=== PATIENT | male | born 1950 | race Caucasian/White ===

== ENCOUNTER 2022-06-09 06:06 | Day surgery (SDC) | payer MEDICARE ==
[2022-06-07 12:21] VITALS: BMI 30.5
[~2022-06-09 06:06] MED LIST: LIDOCAINE 1% (10MG/ML) FOR IV START INTRADERMA PRN
[2022-06-09] MEDS: LACTATED RINGERS 1,000 ML IV SCH ×2 (06:43→07:23)
[2022-06-09 06:49] VITALS: RESP 20; TEMP 97
[2022-06-09] MEDS ORDERED: ONDANSETRON 4 MG/2 ML VIAL IVP PRN (07:00)
[2022-06-09] MEDS ORDERED: PROPOFOL 10 MG/ML 20 ML VIAL IV ONE (07:24)
[2022-06-09] MEDS ORDERED: LIDOCAINE 2% INJ 20 MG/ML (2 ML VIAL) ONE (07:24)
--- NOTE | 2022-06-09 08:00 | P.PCN ---
Date of Procedure: 06/09/22 Procedure(s) Performed: Brief history: Patient is a pleasant 71-year-old white male scheduled for an elective upper endoscopy as well as colonoscopy as a part of evaluation of GERD/Forte's esophagus and history of colon polyps. Last colonoscopy was 2 years ago. Procedure performed: Esophagogastroduodenoscopy with biopsy Colonoscopy with snare polypectomy, argon plasma coagulation and Endo Clip placement Preoperative diagnosis: GERD/Forte's esophagus History of colon polyps Anesthesia: MAC Procedure: After informed consent was obtained from the patient was brought into the endoscopy unit and IV sedation was administered by anesthesia under continuous monitoring. Initially upper endoscopy was done. The Olympus GF 160 video endoscope was inserted inserted into the mouth and esophagus intubated without any difficulty and was gradually advanced into the stomach and duodenum and car efully examined. The bulb and second part of the duodenum appeared normal. The scope was then withdrawn into the stomach adequately insufflated with air and upon careful examination the antrum and body, cardia and fundus appeared normal. The scope was then withdrawn into the esophagus. The GE junction was located at 30 cm to the incisors. Moderate to large size hiatal hernia noted. There was long segment of Forte's esophagus extending from 28-30 cm from the incisors and multiple biopsies were done from this area. The rest of the esophagus appeared normal Rest of the esophagus appeared normal. Patient tolerated the procedure well. At this time the patient continued to remain sedation. Initial digital rectal examination was normal. Olympus CF 160 video colonoscope was then inserted into the rectum and gradually advanced to the cecum without any difficulty. Careful examination was performed as the scope was gradually being withdrawn. The prep was excellent. The cecum, appeared normal. Ascending colon there was a 1 cm residual polyp at the site of previous polypectomy which was removed by snare followed by argon plasma coag ablation. Just distal to this area there was another 3 cm broad-based polyp identified which was moved by snare polypectomy followed by Endo Clip placement. Rest of the ascending colon, transverse colon, descending colon, sigmoid colon and rectum appeared normal. Retroflexion was performed in the rectum and no lesions were noted. Patient tolerated the procedure well. Impression: 1. Upper endoscopy revealed moderate to large size hiatal hernia and long segment Forte's esophagus 2. Colonoscopy revealed a) 1 cm residual ascending colon polyp status post snare polypectomy followed by argon plasma coagulation b) 3 centimeter broad-based polyp in the distal ascending colon status post piecemeal snare polypectomy followed by Endo Clip placement Recommendations: Findings of this examination were discussed with the patient as well as his family. He was advised to follow with the biopsy results. He will be seen in office in 2 weeks. Reason the biopsy results will plan a repeat colonoscopy in one year. In regards to Forte's esophagus he will continue with Prilosec 20 mg daily and follow antireflux measures. If the biopsy does not reveal any evidence of dysphagia can have a repeat upper endoscopy in 2 years.
[2022-06-09 08:19] VITALS: BP 144/93; PULSE 63
== END 2022-06-09 08:32 | disposition home or self-care (01) ==
LOC: ORWHC2ENDO 06:06
PROVIDERS: ATTEND Internal Medicine Gastroenterology
DX: K22.70 Barrett's esophagus without dysplasia (principal); K21.9 Gastro-esophageal reflux disease without esophagitis; I10 Essential (primary) hypertension; Z79.899 Other long term (current) drug therapy; Z79.82 Long term (current) use of aspirin; Z86.010 Personal history of colon polyps
CPT/HCPCS: 88305; 45385; 43239; 45388; J2704; J2001; 45382

== ENCOUNTER 2023-07-22 12:14 | Day surgery (SDC) | payer MEDICARE ==
[2023-07-20 09:24] VITALS: BMI 28.5
[~2023-07-22 12:14] MED LIST changes: +LACTATED RINGERS 1,000 ML IV SCH; -LIDOCAINE 1% (10MG/ML) FOR IV START INTRADERMA PRN
[2023-07-22 13:27] VITALS: RESP 16; TEMP 97.6
[2023-07-22] MEDS ORDERED: PROPOFOL 10 MG/ML 20 ML VIAL IV ONE (15:03)
--- NOTE | 2023-07-22 15:56 | P.PCN ---
Date of Procedure: 07/22/23 Procedure(s) Performed: BRIEF HISTORY: Patient is a 72-year-old pleasant white male scheduled for an elective colonoscopy as a part of follow-up of large ascending colon polyp that was noted on colonoscopy in June 2022. PROCEDURE PERFORMED: Colonoscopy with snare polypectomy followed by tattooing with Ilene ink. PREOPERATIVE DIAGNOSIS: Follow-up large ascending colon polyp noted on colonoscopy June 2022 IV sedation per Anesthesia. PROCEDURE: After informed consent was obtained, the patient, was brought into the endoscopy unit. IV sedation was administered by Anesthesia under continuous monitoring. Digital rectal examination was normal. Initially the Olympus CF-160 flexible video colonoscope was then inserted in the rectum, gradually advanced into the cecum without any difficulty. Careful examination was performed as the scope was gradually being withdrawn. Ileocecal valve and the appendiceal orifice were visualized and appeared normal. Prep was excellent. Mucosa of the cecum, appeared normal. In the ascending colon there was a 3 cm residual ascending colon polyp that was removed by piecemeal snare polypectomy and only 75% the polyp was removed. Tattooing was performed with Ilene ink. Rest of the ascending colon, appeared normal. In the transverse colon there was a 1 cm polyp removed by snare polypectomy. Rest of the transverse colon, descending colon, sigmoid colon, and rectum appeared normal. Retroflexion was performed in the rectum and no lesions were seen. The patient tolerated the procedure well. IMPRESSION: 3 cm broad-based ascending colon polyp status post piecemeal snare polypectomy and 75% the polyp removed by tattooing with Ilene ink 1 cm transverse colon polyp status post polypectomy RECOMMENDATIONS: Findings of this examination were discussed with the patient as well as his family. He was advised to follow with the biopsy results. He'll be seen in office in 3 weeks. Based on the biopsy results will decide on a repeat colonoscopy in 1 month was a surgical intervention..
[2023-07-22 16:15] VITALS: BP 130/82; PULSE 79
== END 2023-07-22 16:16 | disposition home or self-care (01) ==
LOC: ORWHC2ENDO 12:14
PROVIDERS: ATTEND Internal Medicine Gastroenterology
DX: D12.3 Benign neoplasm of transverse colon (principal); D12.2 Benign neoplasm of ascending colon; Z86.010 Personal history of colon polyps
CPT/HCPCS: 88305; 45385; 44404; J2704